=== PATIENT | male | born 1960 | race Caucasian/White ===

== ENCOUNTER 2024-11-07 15:11 | Outpatient (REF) | payer MEDICAID, SELFPAY ==
[2024-11-07 15:53] LABS: Abs Immature Grans 0.04 10^3/uL (0.0-0.06); HCT 45.6 % (40.0-50.0); HGB 15.0 g/dL (13.5-17.5); Immature Grans % 0.4 %; MCH 30.0 pg (27.0-33.0); MCHC 32.9 % (32.0-36.0); MCV 91 fL (80-95); MPV 11.9 fL (8.0-11.0); Platelet Count 197 10^3/uL (130-400); RBC 5.00 10^6/uL (4.36-5.78); RDW 13.2 % (11.8-14.1); RDW-SD 44.7 fL; WBC 11.12 10^3/uL (4.4-10.8)
[2024-11-07 16:43] LABS: ALT 25 U/L (16-63); AST 31 U/L (15-37); Albumin 4.0 g/dL (3.4-5.0); Alkaline Phosphatase 112 U/L (46-116); Anion Gap 9.3 mmol/L (3-11); BUN 13 mg/dL (7-18); Bilirubin, Total 1.0 mg/dL (0.2-1.0); CO2 29.7 mmol/L (21.0-32.0); Calcium 9.4 mg/dL (8.5-10.1); Calculated LDL 190 mg/dL (<100); Chloride 101 mmol/L (98-107); Cholesterol 273 mg/dL (<200); Estimated GFR 95.97 (mL/min/1.73m2); Folate > 20.0 ng/mL (8.6-20.0); Glucose 101 mg/dL (74-106); HDL Cholesterol 34 mg/dL (>or=40); Potassium 4.7 mmol/L (3.5-5.1); Sodium 140 mmol/L (136-145); TSH 1.48 uIU/mL (0.36-3.74); Total Protein 7.4 g/dL (6.4-8.2); Triglyceride 249 mg/dL (<150); Vitamin B12 540 pg/mL (193-986)
[2024-11-07 16:53] LABS: Hemoglobin A1C 5.6 % (<5.7)
[2024-11-07 17:24] LABS: Iron 64 ug/dL (65-175); Total Iron Binding Capacity 343 ug/dL (250-450); Transferrin Sat 19 % (20-55)
[2024-11-07 22:32] LABS: CRP, High Sensitivity >15.00 mg/L (See Note)
[2024-11-10 13:43] LABS: Hepatitis C Ab w Rflx HCV PCR Negative (Negative)
== END 2024-11-07 15:12 | disposition home or self-care (01) ==
LOC: NCHCN 15:11
PROVIDERS: PCP Family Medicine; Visit Provider Family Medicine
DX: R07.9 Chest pain, unspecified (principal); R53.83 Other fatigue; Z00.00 Encounter for general adult medical examination without abnormal findings
CPT/HCPCS: 80053; 80061; 86141; 86803; 82607; 82746; 83036; 83540; 83550; 84443; 85025

== ENCOUNTER 2024-11-27 04:21 | Outpatient (CLI) | payer MEDICAID, SELFPAY ==
--- NOTE | 2024-11-27 | DI.CTLCSR_ITS ---
Exam(s) CT CHEST LUNG CANCER SCREEN EXAM: CT CHEST LUNG CANCER SCREEN CLINICAL HISTORY: NICOTINE DEPENDENCE F17.210 73 PY HX 1.5 PPD SINCE AGE 9 SCREENING LUNG TECHNIQUE: Imaging Protocol: Axial computed tomography images with coronal and sagittal reformatted images were created and reviewed. Low dose screening protocol. COMPARISON: No exams were available for comparison FINDINGS: Tracheobronchial tree: No bronchiectasis or mucus plugging. Mediastinum and Ashley: No dominant adenopathy or fluid collection. Pulmonary parenchyma: No consolidation or dominant measurable mass. No visible emphysematous changes. No significant interstitial changes. Lung Nodules: Exam is mildly limited by respiratory motion. There is a 2 millimeter nodule noted but Pleura: No effusion. No pneumothorax. Heart: The heart is not dilated. Mild coronary artery calcifications are seen. No pericardial effusion. Aorta: Thoracic aorta non-dilated. Upper abdomen: Unremarkable. Bones: Unremarkable for age. Soft Tissues: Unremarkable. IMPRESSION: No suspicious pulmonary nodules. Lung RADS Cat 1 - Negative: No nodules and definitely benign nodules Lung-RADS 1.0 CATEGORIES: Category 0 - Prior chest CT exam(s) being located for comparison. Category 1 - Annual screening in 12 months. No nodules or definitely benign nodules. Category 2 - Annual screening in 12 months. Benign appearance. Nodules with low likelihood of becoming active cancer. Category 3 - 6-month follow-up. Probably benign. Short-term follow-up suggested. Nodules with low likelihood of becoming active cancer. Category 4A - 3-month follow-up and CT/PET if >8 mm in size. Suspicious finding. Findings which require additional testing. Category 4B - Findings which require additional testing and tissue sampling. Category 4X - Category 3 or 4 nodules with additional features or imaging findings that increases the suspicion of malignancy. Modifier S- Potentially clinically significant findings (non lung cancer) RADIATION DOSE DELIVERED: Total DLP DATA REPOSITORY: All CT scans at this facility are submitted to the National Radiology Data Registry (NRDR) Dose Index Registry (DIR) with the [employer] ([employer]). RADIATION OPTIMIZATION: All CT scans at this facility use at least one of these dose optimization techniques: automated exposure control; mA and/or kV adjustment per patient size (includes targeted exams where dose is matched to clinical indication); or iterative reconstruction.
--- NOTE | 2024-11-27 13:45 | DI.US_ITS ---
Exam(s) US AAA SCREENING EXAM: US AAA SCREENING CLINICAL HISTORY: SCREENING AAA, Z13.6, 70+ P/Y SMOKING HX COMPARISON: No exams were available for comparison FINDINGS: Abdominal Aorta: Proximal: 2.9 cm Mid: 2.3 cm Distal: 2.2 cm Iliacs: Right: 1.2 cm Left: 1.3 cm Mild amount of calcific plaque. IMPRESSION: No evidence of abdominal aortic aneurysm. DATA REPOSITORY:
== END 2024-11-27 04:41 ==
PROVIDERS: PCP Family Medicine; Visit Provider Family Medicine
DX: Z13.6 Encounter for screening for cardiovascular disorders (principal); Z12.2 Encounter for screening for malignant neoplasm of respiratory organs; F17.210 Nicotine dependence, cigarettes, uncomplicated
CPT/HCPCS: 71271; 76706